=== PATIENT | female | born 1990 | race Two or more races ===

== ENCOUNTER 2021-12-08 19:34 | Emergency (ER) | payer OTHER ==
[~2021-12-08] VITALS: Ht 172.7 cm; Wt 63.5 kg
[2021-12-08] MEDS ORDERED: ONDANSETRON ODT 4 MG TAB.RAPDIS SL ONE (20:00)
[2021-12-08] MEDS ORDERED: OXYCODONE/APAP 5-325 MG TABLET PO ONE (20:00)
[2021-12-08] MEDS ORDERED: OXYCODONE/APAP 5-325 MG TABLET ONE (20:05)
[2021-12-08] MEDS ORDERED: ONDANSETRON ODT 4 MG TAB.RAPDIS ONE (20:05)
[2021-12-08 20:18] LABS: HEMATOCRIT 34.4 % (31.2-41.9); MEAN CORPUSCULAR HEMOGLOBIN 31.9 uug (24.7-32.8); MEAN CORPUSCULAR VOLUME 92.8 fL (75.5-95.3); PLATELET COUNT (AUTO) 199 K/uL (179-408)
[2021-12-08 20:33] LABS: ALANINE AMINOTRANSFERASE 18 U/L (14-59); ALKALINE PHOSPHATASE 51 U/L (50-136); ASPARTATE AMINOTRANSFERASE 9 U/L (15-37); BILIRUBIN,TOTAL 0.3 mg/dL (0.2-1.0); CARBON DIOXIDE 23 mmol/L (21-32); CHLORIDE 104 mmol/L (98-107); CREATININE 1.1 mg/dL (0.6-1.3); GLUCOSE 104 mg/dL (74-106); POTASSIUM 3.6 mmol/L (3.5-5.1); TOTAL PROTEIN, SERUM 6.7 g/dL (6.4-8.2); UREA NITROGEN, BLOOD 14 mg/dL (7-18)
[2021-12-08 20:48] LABS: *BILIRUBIN,URIN NEGATIVE (NEGATIVE); *BLOOD, URINE NEGATIVE (NEGATIVE); *CLARITY,URINE CLEAR (CLEAR); *COLOR,URINE YELLOW (YELLOW); *KETONES,URINE NEGATIVE (NEGATIVE); *UROBILINOGEN,URINE 0.2 E.U./dl (NORMAL); LEUKOCYTE ESTERASE ,URINE NEGATIVE (NEGATIVE); NITRITE, URINE NEGATIVE (NEGATIVE); PH,URINE 7.5 (5.0-8.0); UGLUCOSE NEGATIVE (NEGATIVE)
[2021-12-08] MEDS ORDERED: ONDA4TAB5 PO (21:31)
[2021-12-08] MEDS ORDERED: HYDR-4209 PO (21:31)
--- NOTE | 2021-12-08 21:43 | NUR ---
Patient discharged to home in stable condition with taking patient home. Written and verbal after care instructions given. Patient verbalizes understanding of instructions. Stressed follow up or return to ER for worsening s/s.
[2021-12-08 21:45] VITALS: BP 105/65
== END 2021-12-08 21:46 | disposition home or self-care (01) ==
LOC: ER 19:37
DX: R51.9 Headache, unspecified (principal); M25.50 Pain in unspecified joint; K92.1 Melena; M79.10 Myalgia, unspecified site; Z20.822 Contact with and (suspected) exposure to COVID-19
CPT/HCPCS: 36415; 85025; 87400; A4663; Q0162

== ENCOUNTER 2021-12-22 10:33 | Emergency (ER) | payer OTHER ==
[~2021-12-22] VITALS: Ht 167.6 cm; Wt 59.0 kg
[~2021-12-22 10:33] MED LIST: HYDR-4209 PO; ONDA4TAB5 PO
[2021-12-22] MEDS ORDERED: LORAZEPAM 1 MG TABLET ONE (11:05)
[2021-12-22] MEDS ORDERED: LORAZEPAM 0.5 MG TABLET PO ONE (11:15)
[2021-12-22] MEDS ORDERED: diphenhydrAMINE 50 MG/1 ML VIAL IM ONE (11:15)
[2021-12-22] MEDS ORDERED: diphenhydrAMINE 50 MG/1 ML VIAL ONE ×2 (11:30→11:31)
[2021-12-22 11:31] LABS: HEMATOCRIT 35.3 % (31.2-41.9); MEAN CORPUSCULAR HEMOGLOBIN 31.8 uug (24.7-32.8); MEAN CORPUSCULAR VOLUME 92.4 fL (75.5-95.3); PLATELET COUNT (AUTO) 253 K/uL (179-408)
[2021-12-22 12:32] LABS: CREATININE 0.8 mg/dL (0.6-1.3); POTASSIUM 4.4 mmol/L (3.5-5.1)
[2021-12-22 12:51] LABS: *BILIRUBIN,URIN NEGATIVE (NEGATIVE); *BLOOD, URINE 1+ (NEGATIVE); *CLARITY,URINE CLEAR (CLEAR); *COLOR,URINE YELLOW (YELLOW); *KETONES,URINE 2+ (NEGATIVE); *UROBILINOGEN,URINE 0.2 E.U./dl (NORMAL); LEUKOCYTE ESTERASE ,URINE NEGATIVE (NEGATIVE); NITRITE, URINE NEGATIVE (NEGATIVE); UGLUCOSE NEGATIVE (NEGATIVE)
[2021-12-22 13:05] LABS: BACTERIA,URINE NONE SEEN /HPF (NONE SEEN); RBC,URINE 0-3 /HPF (0-3); SQUAMOUS EPITHELIAL CELL,UR FEW /HPF (NONE SEEN); WBC,URINE 0-3 /HPF (0-3)
[2021-12-22 13:21] LABS: *URINE HCG, QUAL NEGATIVE (NEGATIVE)
[2021-12-22 14:36] VITALS: BP 112/65
--- NOTE | 2021-12-22 14:36 | NUR ---
Patient discharged to home in stable condition. Written and verbal after care instructions given. Patient verbalizes understanding of instructions. Stressed follow up or return to ER for worsening s/s.
== END 2021-12-22 14:36 | disposition home or self-care (01) ==
LOC: ER 10:36
DX: F41.9 Anxiety disorder, unspecified (principal); F41.0 Panic disorder [episodic paroxysmal anxiety]
CPT/HCPCS: 99283; 80048; 81001; 84703; 83690; 85025; 36415; 96372; J1200; A4663

== ENCOUNTER 2022-01-28 22:12 | Emergency (ER) | payer OTHER ==
[~2022-01-28] VITALS: Ht 165.1 cm; Wt 59.0 kg
[2022-01-28] MEDS ORDERED: PROCHLORPERAZINE EDISYLATE 10 MG/2 ML VIAL IV ONE (23:15)
[2022-01-28] MEDS ORDERED: IV NORMAL SALINE 1000 ML BAG IV ONE (23:15)
[2022-01-28] MEDS ORDERED: HYDROMORPHONE 1 MG/1 ML DISP.SYRIN IV ONE (23:15)
[2022-01-29 00:41] LABS: HEMATOCRIT 37.4 % (31.2-41.9); MEAN CORPUSCULAR HEMOGLOBIN 32.1 uug (24.7-32.8); MEAN CORPUSCULAR VOLUME 94.1 fL (75.5-95.3); PLATELET COUNT (AUTO) 209 K/uL (179-408)
[2022-01-29 00:50] LABS: BILIRUBIN,DIRECT 0.2 mg/dL (0.0-0.2); BILIRUBIN,TOTAL 0.8 mg/dL (0.2-1.0); POTASSIUM 3.7 mmol/L (3.5-5.1); TOTAL PROTEIN, SERUM 7.5 g/dL (6.4-8.2)
[2022-01-29] MEDS ORDERED: PROC10TA29 PO (01:04)
[2022-01-29] MEDS ORDERED: OXYC-128 PO (01:04)
--- NOTE | 2022-01-29 02:30 | NUR ---
Patient discharged to home in stable condition with hsband taking patient home. Written and verbal after care instructions given. Patient verbalizes understanding of instructions. Stressed follow up or return to ER for worsening s/s.
[2022-01-29 03:11] VITALS: BP 115/65
== END 2022-01-29 01:30 | disposition home or self-care (01) ==
LOC: ER 22:12
DX: A08.4 Viral intestinal infection, unspecified (principal)
CPT/HCPCS: 99284; 96374; 96361; 96375; 80076; 80048; 83690; 85025; 36415; 83605; J0780; J1170; J7040; A4663

== ENCOUNTER 2022-10-12 21:28 | Emergency (ER) | payer OTHER ==
[~2022-10-12] VITALS: Ht 167.6 cm; Wt 59.0 kg
[~2022-10-12 21:28] MED LIST changes: +OXYC-128 PO; +PROC10TA29 PO
--- NOTE | 2022-10-12 21:49 | NUR ---
Dr Tucker at bedside, MSE in progress
[2022-10-12 21:58] VITALS: BP 118/71
--- NOTE | 2022-10-12 21:58 | NUR ---
Patient discharged to home in stable condition. Written and verbal after care instructions given. Patient verbalizes understanding of instructions. Stressed follow up or return to ER for worsening s/s. Patient is a/ox4, NAD noted. Patient ambulated with steady gait
== END 2022-10-12 21:59 | disposition home or self-care (01) ==
LOC: ER 21:32
DX: S51.811A Laceration without foreign body of right forearm, initial encounter (principal); S51.851A Open bite of right forearm, initial encounter; Z79.899 Other long term (current) drug therapy; W54.0XXA Bitten by dog, initial encounter; Y93.89 Activity, other specified; Y92.89 Other specified places as the place of occurrence of the external cause; Y99.8 Other external cause status
CPT/HCPCS: A4663